=== PATIENT | female | born 1995 | race Caucasian/White ===

== ENCOUNTER 2018-01-27 11:58 | Observation (INO) ==
--- NOTE | 2018-01-27 12:04 | Emergency Department Note ---
Disposition Clinical Impression: Ureterolithiasis, Intractable pain Disposition: Admitted As Inpatient Condition: Fair Referrals: Bessie Lockhart MD [Primary Care Provider] - Forms: ED Satisfaction Letter, Work/School Release Time of Disposition: 15:14 Abdominal Pain HPI - General Chief Complaint: ED Abdominal Pain Stated Complaint: R Flank Pain Time Seen by Provider: 01/27/18 12:03 Source: patient Mode of arrival: ambulatory Limitations: no limitations Nursing Notes Reviewed: Yes Vital Signs Reviewed: Yes - History of Present Illness HPI Narrative: Patient is a 22-year-old female with past medical history of recently diagnosed right-sided ureterolithiasis. She states that she was seen in the ER approximately 4 days ago due to right flank pain and nausea and vomiting. She had a CT scan and she says that she was diagnosed with a right-sided kidney stone that was approximately 5 mm. She was sent home with Reina Vora and was told to follow-up with urology. She states that she did not make a call to urology because she was waiting to see if she was able to pass it on her own. She does have a history of 1 kidney stone prior to this and was able to pass it on her own. She states that the nausea, vomiting, pain worsened and she presented to [facility] yesterday. She had a CT scan performed there that she states showed a repeat 5 mm stone without large change in movement. She denies any other fevers, dysuria, gross hematuria, vaginal bleeding or discharge , concern for . She states that she was offered at admission yesterday for pain control but declined due to having children home. Pain Scale: 7 - Related Data Allergies Allergy/AdvReac Type Severity Reaction Status Date / Time No Known Allergies Allergy Verified 12/29/17 20:19 All systems ED: reviewed and negative except as stated. Constitutional: Denies: fever Cardiovascular: Denies: chest pain Respiratory: Denies: cough, dyspnea, wheezes Gastrointestinal: Reports: abdominal pain, nausea, vomiting. Denies: diarrhea, constipation, hematemesis, melena, hematochezia Genitourinary: Denies: urgency, dysuria Musculoskeletal: Denies: back pain, neck pain Integumentary: Denies: rash Neurological: Denies: headache, weakness, numbness, paresthesias Abdominal Pain PMH - Past Medical History Medical history: Reports: non-contributory Female Surgical History: Reports: no surgical history CAMP BOSS history: Reports: no CAMP BOSS history Psychiatric history: Reports: no psych history - Social History Smoking status: Never smoker Alcohol use: Reports: none Drug use: Reports: none Physical Exam - General Limitations: no limitations General appearance: alert, in no apparent distress - Head Head exam: atraumatic, normocephalic, normal inspection - Eye Eye exam: Present: normal appearance, PERRL, EOMI - ENT ENT exam: normal exam, normal oropharynx, mucous membranes moist - Neck Neck exam: Present: normal inspection, full ROM, trachea midline - Chest Chest inspection: Present: normal inspection, symmetric chest wall rise - Respiratory Respiratory exam: Present: normal lung sounds bilaterally - Cardiovascular Cardiovascular exam: Present: regular rate, normal rhythm, normal heart sounds - Abdominal Exam Abdominal exam: Present: soft, tenderness (mild RUQ tenderness, mild RLQ tenderness). Absent: distention, guarding, rebound, rigidity, Villalba's sign, Rovsing's sign, tenderness at McBurney's Point - Extremities Exam Extremities exam: Present: normal inspection, full ROM. Absent: tenderness, pedal edema - Back Exam Back exam: Present: CVA tenderness (R). Absent: CVA tenderness (L) - Neurological Exam Neurological exam: Present: alert, oriented X3 - Psychiatric Psychiatric exam: Present: normal affect, normal mood - Skin Skin exam: Present: warm, dry, intact, normal color Course Course Narrative: Vitals currently within normal limits. Physical exam shows right CVA, right flank, right lower quadrant tenderness. Patient has had 2 CTs within the past 4 days. We discussed obtaining KUB to assess for stone position to save radiation exposure. Patient was agreeable with this plan. We will also repeat urinalysis and urine . We will treat the patient with fentanyl and Zofran for pain and nausea control. We will obtain CT results from [facility] for confirmation. Patient may require admission for pain control. 14:57 upon review of the patient's charting and PACs radiology records, there is no evidence of any CT scan in our system. We contacted [facility], they faxed over information and there is also no CT scan performed at that facility either according to transfer center. KUB was performed but did not definitively show stone on exam. I discussed that we could obtain CT abdomen and pelvis for reassessment since there is no records of any CT scans for review. I did discuss extensively that this is been increased radiation risk to the patient. She still wanted CT scan performed, sitll has uncontrolled pain. CT abdomen and pelvis shows a 5 mm UVJ stone on the right. I called urology, spoke with Dr. Maria and discussed the case. He is agreeable with accepting the patient on his service for pain control and right-sided stent placement. KUB X-Ray 01/27/18 12:13 IMPRESSION: No evidence of bowel obstruction. D/ / Yoel Goddard MD / Yoel Goddard MD Interpreting Provider: Yoel Goddard MD Abdomen/Pelvis CT 01/27/18 13:32 IMPRESSION: 5 mm calculus at the right UVJ with associated moderate right hydronephrosis. D/ / 01/27/2018 14:31:55 Bart Naqvi MD / [facility] Interpreting Provider: Bart Naqvi MD Vital Signs Temperature 98.1 F 01/27/18 11:59 Pulse Rate 91 01/27/18 11:59 Respiratory Rate 16 01/27/18 11:59 Blood Pressure 119/74 01/27/18 11:59 O2 Sat by Pulse Oximetry 97 01/27/18 11:59 Temperature 98.1 F 01/27/18 12:14 Pulse Rate 79 01/27/18 14:35 Respiratory Rate 18 01/27/18 14:35 Blood Pressure 108/80 01/27/18 14:35 O2 Sat by Pulse Oximetry 97 01/27/18 12:14 Oxygen Delivery Oxygen Delivery Room Air Abdominal Pain - MDM Narrative Medical decision making narrative: Vitals currently within normal limits. Physical exam shows right CVA, right flank, right lower quadrant tenderness. Patient has had 2 CTs within the past 4 days. We discussed obtaining KUB to assess for stone position to save radiation exposure. Patient was agreeable with this plan. We will also repeat urinalysis and urine . We will treat the patient with fentanyl and Zofran for pain and nausea control. We will obtain CT results from [facility] for confirmation. Patient may require admission for pain control. 14:57 upon review of the patient's charting and PACs radiology records, there is no evidence of any CT scan in our system. We contacted [facility], they faxed over information and there is also no CT scan performed at that facility either according to transfer center. KUB was performed but did not definitively show stone on exam. I discussed that we could obtain CT abdomen and pelvis for reassessment since there is no records of any CT scans for review. I did discuss extensively that this is been increased radiation risk to the patient. She still wanted CT scan performed, myke has uncontrolled pain. CT abdomen and pelvis shows a 5 mm UVJ stone on the right. I called urology, spoke with Dr. Maria and discussed the case. He is agreeable with accepting the patient on his service for pain control and right-sided stent placement. - Medical Records Medical records reviewed: Yes I reviewed the patient's medical records. - Lab Data Lab results reviewed: Yes I reviewed the patient's lab results. Result diagrams: 01/27/18 12:30 01/27/18 12:30 Lab Results 01/27/18 01/27/18 01/27/18 Range/Units 12:05 12:05 12:30 WBC 6.5 (4.3-11.1) K/mcL RBC 4.01 (3.82-4.97) M/mcL Hgb 11.3 L (11.5-15.4) g/dL Hct 33.8 L (35.3-44.9) % MCV 84.3 (83.0-100.0) fL MCH 28.2 (28.0-33.3) pg MCHC 33.4 (31.6-35.5) g/dL RDW 12.6 (11.5-14.5) % Plt Count 250 (140-400) K/mcL MPV 10.4 (9.4-12.4) fL Immature Gran % 0.2 (0-4) % Seg Neutrophils % 69.8 % Lymphocytes % 19.2 % Monocytes % 9.2 % Eosinophils % 1.4 % Basophils % 0.2 % Neutrophils # 4.6 (1.6-8.9) K/mcL Lymphocytes # 1.3 (0.6-4.6) K/mcL Monocytes # 0.6 (0.0-1.3) K/mcL Eosinophils # 0.1 (0.0-0.6) K/mcL Basophils # 0.0 (0.0-0.2) K/mcL Sodium (136-145) mEq/L Potassium (3.5-5.1) mEq/L Chloride (98-107) mEq/L Carbon Dioxide (23-29) mEq/L BUN (6-20) mg/dL Creatinine (0.60-1.20) mg/dL Est GFR ( Amer) (> 60) Est GFR (Non-Af Amer) (> 60) BUN/Creatinine Ratio (6-26) Glucose (70-105) mg/dL Calculated Osmolality (280-300) Calcium (8.6-10.3) mg/dL Urine Color Yellow (Yellow) Urine Clarity Clear (Clear) Urine pH 6.5 (5.0-8.0) pH Units Ur Specific [place] 1.016 (1.010-1.025) Urine Protein Negative (Neg-Trace) mg/dL Urine Glucose (UA) Normal (Normal) mg/dL Urine Ketones Negative (Negative) mg/dL Urine Blood Moderate H (Negative) Urine Nitrite Negative (Negative) Urine Bilirubin Negative (Negative) Urine Urobilinogen Normal (Normal) mg/dL Ur Leukocyte Esterase Small H (Negative) Urine Microscopic RBC 5-15 H (0-3) per hpf Urine Microscopic WBC 3-5 H (0-3) per hpf Ur Squamous Epith Cells Many H (None-Few) per lpf Urine Bacteria None Seen (None-Few) per hpf Hyaline Casts None Seen (None-Few) per lpf Ur Culture Indicated? NO. A (NO) Urine Test Negative (Negative) 01/27/18 Range/Units 12:30 WBC (4.3-11.1) K/mcL RBC (3.82-4.97) M/mcL Hgb (11.5-15.4) g/dL Hct (35.3-44.9) % MCV (83.0-100.0) fL MCH (28.0-33.3) pg MCHC (31.6-35.5) g/dL RDW (11.5-14.5) % Plt Count (140-400) K/mcL MPV (9.4-12.4) fL Immature Gran % (0-4) % Seg Neutrophils % % Lymphocytes % % Monocytes % % Eosinophils % % Basophils % % Neutrophils # (1.6-8.9) K/mcL Lymphocytes # (0.6-4.6) K/mcL Monocytes # (0.0-1.3) K/mcL Eosinophils # (0.0-0.6) K/mcL Basophils # (0.0-0.2) K/mcL Sodium 137 (136-145) mEq/L Potassium 4.5 (3.5-5.1) mEq/L Chloride 106 (98-107) mEq/L Carbon Dioxide 28 (23-29) mEq/L BUN 13 (6-20) mg/dL Creatinine 0.78 (0.60-1.20) mg/dL Est GFR ( Amer) > 60 (> 60) Est GFR (Non-Af Amer) > 60 (> 60) BUN/Creatinine Ratio 17 (6-26) Glucose 108 H (70-105) mg/dL Calculated Osmolality 285 (280-300) Calcium 9.6 (8.6-10.3) mg/dL Urine Color (Yellow) Urine Clarity (Clear) Urine pH (5.0-8.0) pH Units Ur Specific [place] (1.010-1.025) Urine Protein (Neg-Trace) mg/dL Urine Glucose (UA) (Normal) mg/dL Urine Ketones (Negative) mg/dL Urine Blood (Negative) Urine Nitrite (Negative) Urine Bilirubin (Negative) Urine Urobilinogen (Normal) mg/dL Ur Leukocyte Esterase (Negative) Urine Microscopic RBC (0-3) per hpf Urine Microscopic WBC (0-3) per hpf Ur Squamous Epith Cells (None-Few) per lpf Urine Bacteria (None-Few) per hpf Hyaline Casts (None-Few) per lpf Ur Culture Indicated? (NO) Urine Test (Negative) - Radiology Data Radiology results reviewed: Yes I reviewed the patient's radiology results. KUB X-Ray 01/27/18 12:13 IMPRESSION: No evidence of bowel obstruction. D/ / Yoel Goddard MD / Yoel Goddard MD Interpreting Provider: Yoel Goddard MD Abdomen/Pelvis CT 01/27/18 13:32 IMPRESSION: 5 mm calculus at the right UVJ with associated moderate right hydronephrosis. D/ / 01/27/2018 14:31:55 Bart Naqvi MD / [facility] Interpreting Provider: MD Raysa Angel - Raysa Situation: Demographics, MOA Background: Presenting Complaint, Relevant PMH, Meds, & Allergies Assessment: Vital Signs, Course and respsone to treatment, Exam Concerns, Patient/Family Expectation, Pertinant Lab Results Recommendation: Barrier(s) to disposition, Recommendation based on pending studies, treatments, or consults Raysa Report Given to: Dr. Crow Tabares Repor Time: 15:14
[2018-01-27] MEDS ORDERED: Ondansetron 4 MG/2 ML VIAL IVP ONE (12:14)
[2018-01-27] MEDS ORDERED: *HR* FentaNYL (PF) 100 MCG/2 ML VIAL IVP ONE (12:14)
[2018-01-27 12:19] LABS: Bilirubin,Urine Negative (Negative); Blood,Urine Moderate (Negative); Clarity,Urine Clear (Clear); Color,Urine Yellow (Yellow); Glucose,Urine (UA) Normal (Normal); Ketones,Urine Negative (Negative); Leukocyte Esterase,Urine Small (Negative); Nitrite,Urine Negative (Negative); PH,Urine 6.5 pH Units (5.0-8.0); Protein,Urine Negative (Neg-Trace); Specific Gravity,Urine 1.016 (1.010-1.025); Urobilinogen,Urine Normal (Normal)
[2018-01-27 12:23] LABS: Bacteria,Urine None Seen per hpf (None-Few); Hyaline Casts,Urine None Seen per lpf (None-Few); Squamous Epithelial Cell,Urine Many per lpf (None-Few)
[2018-01-27 12:45] LABS: Basophils % 0.2 %; Eosinophils # 0.1 K/mcL (0.0-0.6); Eosinophils % 1.4 %; Hematocrit 33.8 % (35.3-44.9); Hemoglobin 11.3 g/dL (11.5-15.4); Immature Granulocytes % 0.2 % (0-4); Lymphocytes # 1.3 K/mcL (0.6-4.6); Lymphocytes % 19.2 %; Mean Corpuscular HGB Conc 33.4 g/dL (31.6-35.5); Mean Corpuscular Hemoglobin 28.2 pg (28.0-33.3); Mean Corpuscular Volume 84.3 fL (83.0-100.0); Mean Platelet Volume 10.4 fL (9.4-12.4); Monocytes # 0.6 K/mcL (0.0-1.3); Monocytes % 9.2 %; Neutrophils # 4.6 K/mcL (1.6-8.9); Platelet Count 250 K/mcL (140-400); Red Blood Count 4.01 M/mcL (3.82-4.97); Red Cell Distribution Width 12.6 % (11.5-14.5); Segmented Neutrophils % 69.8 %
--- NOTE | 2018-01-27 13:00 | Emergency Department Note ---
Disposition Clinical Impression: Ureterolithiasis, Intractable pain Disposition: Admitted As Inpatient Condition: Fair Referrals: Bessie Lockhart MD [Primary Care Provider] - Forms: ED Satisfaction Letter, Work/School Release Abdominal Pain HPI - General Chief Complaint: ED Abdominal Pain Stated Complaint: R Flank Pain Time Seen by Provider: 01/27/18 12:03 Source: patient Mode of arrival: ambulatory Nursing Notes Reviewed: Yes Vital Signs Reviewed: Yes - History of Present Illness Pain Scale: 0 - Related Data Previous Rx's Medication Instructions Recorded Azithromycin [Azithromycin 6-Tab 250 mg PO PER PKG DI #6 tab 07/08/17 Pack] Ibuprofen [Motrin] 600 mg PO Q6HR PRN #20 tab 07/08/17 Nayan/Poly/HC *EAR* SOLN 4 drop RIGHT EAR QID #1 solution 07/08/17 [Cortisporin *EAR* SOLN] Ibuprofen [Motrin] 800 mg PO Q8HR #30 tablet 11/20/17 HYDROcodone/Acet 5/325 mg [[place] 1 tab PO Q6H PRN 2 Days #8 tab 12/29/17 5-325 mg] Ibuprofen [Motrin] 800 mg PO Q8HR PRN #14 tablet 12/29/17 Allergies Allergy/AdvReac Type Severity Reaction Status Date / Time No Known Allergies Allergy Verified 12/29/17 20:19 Constitutional: Denies: fever Cardiovascular: Denies: chest pain Respiratory: Denies: cough, dyspnea, wheezes Gastrointestinal: Reports: abdominal pain, nausea, vomiting. Denies: diarrhea, constipation, hematemesis, melena, hematochezia Genitourinary: Denies: urgency, dysuria Musculoskeletal: Denies: back pain, neck pain Integumentary: Denies: rash Neurological: Denies: headache, weakness, numbness, paresthesias Abdominal Pain PMH - Past Medical History Medical history: Reports: non-contributory Female Surgical History: Reports: no surgical history LAW TUTOR history: Reports: no LAW TUTOR history Psychiatric history: Reports: no psych history - Social History Smoking status: Never smoker Alcohol use: Reports: none Drug use: Reports: none Physical Exam - General Limitations: no limitations General appearance: alert, in no apparent distress Course Vital Signs Temperature 98.1 F 01/27/18 11:59 Pulse Rate 91 01/27/18 11:59 Respiratory Rate 16 01/27/18 11:59 Blood Pressure 119/74 01/27/18 11:59 O2 Sat by Pulse Oximetry 97 01/27/18 11:59 Temperature 98.1 F 01/27/18 12:14 Pulse Rate 71 01/27/18 12:50 Respiratory Rate 16 01/27/18 12:14 Blood Pressure 110/57 01/27/18 12:50 O2 Sat by Pulse Oximetry 97 01/27/18 12:14 Oxygen Delivery Oxygen Delivery Room Air Abdominal Pain - Lab Data Result diagrams: 01/27/18 12:30 Lab Results 01/27/18 01/27/18 Range/Units 12:05 12:30 WBC 6.5 (4.3-11.1) K/mcL RBC 4.01 (3.82-4.97) M/mcL Hgb 11.3 L (11.5-15.4) g/dL Hct 33.8 L (35.3-44.9) % MCV 84.3 (83.0-100.0) fL MCH 28.2 (28.0-33.3) pg MCHC 33.4 (31.6-35.5) g/dL RDW 12.6 (11.5-14.5) % Plt Count 250 (140-400) K/mcL MPV 10.4 (9.4-12.4) fL Immature Gran % 0.2 (0-4) % Seg Neutrophils % 69.8 % Lymphocytes % 19.2 % Monocytes % 9.2 % Eosinophils % 1.4 % Basophils % 0.2 % Neutrophils # 4.6 (1.6-8.9) K/mcL Lymphocytes # 1.3 (0.6-4.6) K/mcL Monocytes # 0.6 (0.0-1.3) K/mcL Eosinophils # 0.1 (0.0-0.6) K/mcL Basophils # 0.0 (0.0-0.2) K/mcL Urine Color Yellow (Yellow) Urine Clarity Clear (Clear) Urine pH 6.5 (5.0-8.0) pH Units Ur Specific [place] 1.016 (1.010-1.025) Urine Protein Negative (Neg-Trace) mg/dL Urine Glucose (UA) Normal (Normal) mg/dL Urine Ketones Negative (Negative) mg/dL Urine Blood Moderate H (Negative) Urine Nitrite Negative (Negative) Urine Bilirubin Negative (Negative) Urine Urobilinogen Normal (Normal) mg/dL Ur Leukocyte Esterase Small H (Negative) Urine Microscopic RBC 5-15 H (0-3) per hpf Urine Microscopic WBC 3-5 H (0-3) per hpf Ur Squamous Epith Cells Many H (None-Few) per lpf Urine Bacteria None Seen (None-Few) per hpf Hyaline Casts None Seen (None-Few) per lpf Ur Culture Indicated? NO. A (NO) Attestation Statement - Attestation Attestation: I, Ja Garcia, examined this patient and my medical decision-making was reviewed with the SPRAY APPLICATOR/PA/Advanced Practice Nurse/Resident Physician. I agree with the documented findings, disposition and treatment plan as described except to the extent set forth below. 22-year-old female presents emergency Department with concerns of right flank pain. Patient has a diagnosis 5 mm stone. She was diagnosed with the ureterolithiasis at [facility] and was discharged home with pain medication. Patient has taken multiple pain medications at home without improvement of her pain. She denies fever, chills, chest pain, diarrhea. She does report minimal vaginal discharge however she states that she has had this in the past. I offered a pelvic exam for further evaluation of possible STI. Patient declined and wishes to follow-up with her LAW TUTOR doctor. We obtained records from [facility] which shows the patient is not and she did not have a urinary tract infection. Creatinine was mildly elevated at 1.08.
[2018-01-27 13:08] LABS: BUN/Creatinine Ratio 17 (6-26); Blood Urea Nitrogen 13 mg/dL (6-20); Calcium 9.6 mg/dL (8.6-10.3); Carbon Dioxide 28 mEq/L (23-29); Chloride 106 mEq/L (98-107); Glucose 108 mg/dL (70-105); Osmolality,Calculated 285 (280-300); Potassium 4.5 mEq/L (3.5-5.1); Sodium 137 mEq/L (136-145); eGFR For Non-African Americans > 60 (> 60)
[2018-01-27] MEDS ORDERED: Naloxone 0.4 MG/ML INJ IVP PRN (15:31)
[2018-01-27] MEDS ORDERED: *HR* HYDROcodone/Acet 5/325 mg TABLET PO PRN (15:31)
[2018-01-27] MEDS ORDERED: Ketorolac 15 MG/ML VIAL IVP PRN (15:31)
[2018-01-27] MEDS ORDERED: Ondansetron 4 MG/2 ML VIAL IVP PRN (15:31)
[2018-01-27] MEDS ORDERED: *HR* Promethazine 25 MG/ML VIAL IVP PRN (15:31)
--- NOTE | 2018-01-27 15:44 | Urology History & Physical ---
Date of Encounter: 01/27/18 Time of Encounter: 15:42 Assessment and Plan (1) Ureterolithiasis Current Visit: Yes Status: Acute will plan ureteroscopic stone extraction with holmium laser litho in the AM. procedure discussed including risks - stricture, UTI, injury to urinary tract, stent complications/discomfort. she will require the stent for at least 3 days. (2) Intractable pain Current Visit: Yes Status: Acute oxycodone and toradol for pain controll monitor for stone passage overnight. History of Present Illness Chief complaint: flank pain HPI: Ms. Jones is a 22 year old female with history of kidney stones. ct scan shwos a 5 mm UVJ stone with hydronephrosis. 2 ER visits. intractable pain. no fever. admitted for surgical intervention and pain management. Past Med Surg Social Fam HX - Past Medical History Medical history: non-contributory Psychiatric history: no psych history - Past Surgical History Surgical History: no surgical history - Social History Smoking Status: Never smoker Smokeless Tobacco Status: No Alcohol use: none Drug use: none Medications and Allergies HYDROcodone/Acet 5/325 mg [[place] 5-325 mg] 1 tab PO Q6H PRN 01/27/18 [History] Ketorolac [Toradol] 10 mg PO TID PRN 01/27/18 [History] Tamsulosin [Flomax] 0.4 mg PO DAILY 01/27/18 [History] 3 Allergy/AdvReac Type Severity Reaction Status Date / Time No Known Allergies Allergy Verified 12/29/17 20:19 Review of Systems - Constitutional chills, no fever(s) - EENT Nose, mouth and throat: no dizziness - Cardiovascular no chest pain - Respiratory no cough - Gastrointestinal abdominal pain, nausea - Genitourinary Genitourinary: flank pain - Musculoskeletal back pain - Integumentary no erythema - Neurological no confusion - Psychiatric no anxiety - Hematologic/Lymphatic no easy bleeding - Allergic/Immunologic no throat swelling Exam Initial Vital Signs Temp Pulse Resp BP Pulse Ox 98.1 F 91 16 119/74 97 01/27/18 11:59 01/27/18 11:59 01/27/18 11:59 01/27/18 11:59 01/27/18 11:59 - General physical appearance Present: no distress, moderate pain - Eyes Present: PERRL - ENT Present: normal nares - Neck Present: no masses - Respiratory Present: normal respiratory effort - Abdomen Abdomen: Present: soft - Integumentary Present: no rash - Neurologic Present: normal coordination. Absent: disoriented, confused - Additional Findings +right CVA tenderness Urology Results - Labs 01/27/18 12:30 01/27/18 12:30 Abnormal lab results Hgb 11.3 g/dL (11.5-15.4) L 01/27/18 12:30 Hct 33.8 % (35.3-44.9) L 01/27/18 12:30 Glucose 108 mg/dL (70-105) H 01/27/18 12:30 Urine Blood Moderate (Negative) H 01/27/18 12:05 Ur Leukocyte Esterase Small (Negative) H 01/27/18 12:05 Urine Microscopic RBC 5-15 per hpf (0-3) H 01/27/18 12:05 Urine Microscopic WBC 3-5 per hpf (0-3) H 01/27/18 12:05 Ur Squamous Epith Cells Many per lpf (None-Few) H 01/27/18 12:05 Ur Culture Indicated? NO. (NO) A 01/27/18 12:05 All other labs normal.
[2018-01-27] MEDS: OXYCODONE Oral CONC 10 MG/0.5 ML ORAL.SYG SL PRN ×2 (16:50→18:23)
[2018-01-27] MEDS: 0.9 % Sodium Chloride 1,000 ML IVC SCH (16:50)
[2018-01-28] MEDS: OXYCODONE Oral CONC 10 MG/0.5 ML ORAL.SYG SL PRN ×2 (00:18→06:20)
[2018-01-28] MEDS: 0.9 % Sodium Chloride 1,000 ML IVC SCH (03:28)
[2018-01-28] MEDS ORDERED: cefTRIAXone 1,000 MG in Water for inj. (sterile) 20 ML 10 ML IVP SCH (06:00)
--- NOTE | 2018-01-28 07:17 | Anesthesia Evaluation PreOp ---
Date of Encounter: 01/28/18 Time of Encounter: 07:17 - Past History Planned Operation: R-uteroscopic stone extraction Cardiac History: Denies any Significant Hx Pulmonary History: Denies Any Significant HX SHAREPOINT ADMIN History: Denies Any Significant HX Other Medical History: Denies Any Significant HX Anesthesia History: No Prior Anesthetic Complications, Past Anesthesia Alcohol Use: none Drug use: none Medications and Allergies HYDROcodone/Acet 5/325 mg [[place] 5-325 mg] 1 tab PO Q6H PRN 01/27/18 [History] Ketorolac [Toradol] 10 mg PO TID PRN 01/27/18 [History] Tamsulosin [Flomax] 0.4 mg PO DAILY 01/27/18 [History] 3 Allergy/AdvReac Type Severity Reaction Status Date / Time No Known Allergies Allergy Verified 12/29/17 20:19 - Meds/Allergy Pre-op Review Medications Reviewed: Yes Allergies Reviewed: Yes Beta Blockers on Current Med List: No Anesthesia Results - Labs 01/27/18 12:30 01/27/18 12:30 Laboratory Results Laboratory Tests 01/27/18 12:05 Urine Test Negative Impressions KUB X-Ray 01/27/18 12:13 IMPRESSION: No evidence of bowel obstruction. D/ / Yoel Goddard MD / Yoel Goddard MD Interpreting Provider: Yoel Goddard MD Abdomen/Pelvis CT 01/27/18 13:32 IMPRESSION: 5 mm calculus at the right UVJ with associated moderate right hydronephrosis. D/ / 01/27/2018 14:31:55 Bart Naqvi MD / [email or web address] Interpreting Provider: Bart Naqvi MD Anesthesia Exam Vital Signs Temp Pulse Resp BP Pulse Ox 01/28/18 04:00 98.1 F 68 14 99 01/27/18 20:49 98 01/27/18 16:06 98.0 F 72 14 106/70 98 01/27/18 15:29 98.9 F 18 104/82 01/27/18 14:35 79 18 108/80 01/27/18 13:43 67 16 108/59 01/27/18 12:50 71 110/57 01/27/18 12:14 98.1 F 91 16 119/74 97 01/27/18 11:59 98.1 F 91 16 119/74 97 Intake and Output 01/27/18 01/27/18 01/28/18 15:59 23:59 07:59 Intake Total 240 / 240 1300 / 1300 Output Total 0 / 0 900 / 900 Balance 240 / 240 400 / 400 Intake: IV Fluids 1000 / 1000 0.9 % Sodium Chloride 1,000 ML 1000 / 1000 @ 100 mls/hr IVC .Q10H MARY Rx#: [id number] Oral 240 / 240 300 / 300 Output: Urine 0 / 0 900 / 900 Other: Meal Dinner Percent of Meal Consumed 50% Stool Characteristics Normal for Patient Stool Color Brown # Bowel Movements 0 Weight 77.111 kg 85.956 kg Height: 5'3" Weight: 189# NPO (# of Hours): MNoc Pain Scale Used: Numeric (1 - 10) - HEENT Pupil (Motor): Pupils equal, EOMI Mallampati: II Teeth: Normal Oral Opening: Greater than 3 - SHAREPOINT ADMIN LOC: Oriented SHAREPOINT ADMIN Motor: Normal RUE, Normal LUE, Normal RLE, Normal LLE, Normal Face SHAREPOINT ADMIN Sensory: Normal: RUE, LUE, RLE, LLE, Face - Cardiac Rhythm: Regular Murmur: None - Pulmonary Breath Sounds: bilateral Clear Respiratory Effort: Symmetrical Anesthesia Assess/Plan ASA Score: 2 Modified Shelley Scale for Level of Consciousness: Cooperative, oriented, and tranquil Anesthetic Plan: General Monitoring Plan: Standard Monitors Recovery Plan: PACU Anes Supervising Prov Stmt: Pt seen/evaluated, R&B discussed questions answered and consent obtained. Samuel Pope MD
[2018-01-28] MEDS ORDERED: Famotidine 20 MG/2 ML VIAL ONE (07:28)
[2018-01-28] MEDS ORDERED: Acetaminophen IV 1,000 MG/100 ML INFUS..BTL ONE (07:28)
[2018-01-28] MEDS ORDERED: Metoclopramide 10 MG/2 ML VIAL ONE (07:28)
[2018-01-28] MEDS ORDERED: *HR* FentaNYL (PF) 100 MCG/2 ML VIAL ONE (07:38)
[2018-01-28] MEDS ORDERED: *HR* Midazolam HCl 2 MG/2 ML VIAL ONE (07:38)
[2018-01-28] MEDS ORDERED: *HR* Propofol 200 MG/20 ML VIAL IVP ONE (07:38)
[2018-01-28] MEDS ORDERED: Ondansetron 4 MG/2 ML VIAL ONE (07:38)
[2018-01-28] MEDS ORDERED: Dexamethasone 4 MG/ML VIAL ONE (07:38)
[2018-01-28] MEDS ORDERED: Lidocaine -MPF 2% 2 ML VIAL ONE (07:38)
[2018-01-28] MEDS ORDERED: Ketorolac 30 MG/ML VIAL ONE (08:14)
[2018-01-28] MEDS ORDERED: *HR* Promethazine 25 MG/ML VIAL IVP PRN ×3 (08:18→08:55)
[2018-01-28] MEDS ORDERED: *HR* OxyCODONE/APAP 5/325 TABLET PO PRN ×2 (08:18→08:55)
[2018-01-28] MEDS ORDERED: Naloxone 0.4 MG/ML INJ IVP PRN (08:55)
[2018-01-28] MEDS ORDERED: *HR* HYDROcodone/Acet 5/325 mg TABLET PO PRN (08:55)
[2018-01-28] MEDS ORDERED: Ondansetron 4 MG/2 ML VIAL IVP PRN (08:55)
[2018-01-28] MEDS ORDERED: Ketorolac 15 MG/ML VIAL IVP PRN (08:55)
[2018-01-28] MEDS ORDERED: OXYCODONE Oral CONC 10 MG/0.5 ML ORAL.SYG SL PRN ×2 (08:55)
--- NOTE | 2018-01-28 08:57 | Operative Note ---
Date of procedure: 01/28/18 Pre-op diagnosis: right 5 mm distal ureteral stone Post-op diagnosis: same Procedure: right ureteroscopic stone extraction right JJ placement Anesthesia: GETA Surgeon: Kalin Maria Was there an child life assistant present: No Estimated blood loss (cc): 0 Specimen: stone Condition: stable Disposition: PACU Procedure in Detail: . PROCEDURE IN DETAIL: Patient was taken back to the operating room, positioned supine on the operating table. Anesthesia was applied without complication. They were moved into dorsal lithotomy. Careful attention was maintained to cushion all pressure points for patient's safety. They were prepped and draped in sterile fashion. Time-out was performed with the proper patient and procedure. A 21-Greek rigid cystoscope was inserted into the bladder without difficulty. Systematic examination of bladder revealed no abnormalities. The ureteral orifice was cannulated using a 5-Greek ureteral Catheter and a zip wire was placed . A semi-rigid ureteroscope was carefully inserted into the bladder and guided into the ureteral oriface. At that point, the stone was encountered and I felt that it could be basketed out of the ureter without laser litho. It was removed easily with a 1.9 tipless basket. All stone in the ureter was removed. A 4.8 x 26 ureteral stent was placed over the zip wire under fluoroscopy without complication. The bladder was drained and the stone was sent. The string was left attached to the stent and secured to the patient for easy removal in approximately 72 hours
--- NOTE | 2018-01-28 09:00 | Discharge Summary ---
Orders not resulted at time of discharge: Pending orders 01/28/18 XR KUB [XR] Routine XR fluoroscopy <1 hr [XR] Routine 01/28/18 08:36 Surgical Pathology [PTH] Routine Date of Encounter: 01/28/18 Time of Encounter: 09:00 - Discharge Diagnosis (1) Ureterolithiasis Priority: Primary Status: Resolved (2) Intractable pain Priority: Secondary Status: Resolved - Hospital Course Hospital course: Ms. Jones is a 22 year old female s/p successful ureteroscopic stone extraction for a 5 mm distal right ureteral stone. Plan for discharge today when verifying symptoms are controlled. - Time Spent with Patient Total time spent providing and/or coordinating discharge services: - Discharge Medications Prescriptions: HYDROcodone/Acet 5/325 mg [[place] 5-325 mg] 1 tab PO Q6H PRN 3 Days #10 tablet PRN Reason: Pain Home Medications: Ketorolac [Toradol] 10 mg PO TID PRN 01/27/18 [History] HYDROcodone/Acet 5/325 mg [[place]ledge 5-325 mg] 1 tab PO Q6H PRN 3 Days #10 tablet [Rx] Allergies/Adverse Reactions: 3 Allergy/AdvReac Type Severity Reaction Status Date / Time No Known Allergies Allergy Verified 12/29/17 20:19 Date of admission: 01/27/18 15:10 Primary care physician: Bessie Lockhart Discharging clinician: Kalin Maria Anticipated date of discharge: 01/28/18 Exam Initial Vital Signs Temp Pulse Resp BP Pulse Ox 98.1 F 91 16 119/74 97 01/27/18 11:59 01/27/18 11:59 01/27/18 11:59 01/27/18 11:59 01/27/18 11:59 - General physical appearance Present: no distress - Patient Status Disposition: Home, Self-Care Condition: Good Functional capacity at discharge: independent ambulation Overall status at discharge: patient is progressing back to baseline - Discharge Instructions Follow Up With: Bessie Lokchart MD [Primary Care Provider] - Kalin Maria MD [Partnered Physician] - (see patient instructions. ) Additional Instructions: Expect stent discomfort including urgency, frequency, burning on urination, light blood in the urine, flank pain on urination. Okay to remove stent at home on Monday morning. Expect mild increase in pain for the first 12-24 hours after the stent is removed. This is normal. If unable to remove the stent at home, please come to the urology office for removal If stent is removed at home, please follow up with urology in 2-4 weeks. Call if any symptoms or severe or fever over 101 degrees Increase water intake to at least 64 ounces per day Okay to take [id number] AZO for burning on urination. - Diet and Activity Activity: other Diet: advance to your usual diet - VTE Documentation of Mechanical Device: Intermittent pneumatic compression device
--- NOTE | 2018-01-28 09:20 | Anesthesia Evaluation Post Op ---
Date of Encounter: 01/28/18 Time of Encounter: 09:15 - Vital Signs Vital Signs: Vital Signs - Last 8 Hours Temp Pulse Resp BP Pulse Ox 01/28/18 09:05 98.7 F 72 18 115/65 99 01/28/18 08:55 64 18 112/65 98 01/28/18 08:45 61 14 114/61 97 01/28/18 08:35 98.4 F 67 12 118/74 100 01/28/18 04:00 98.1 F 68 14 99 Intake and Output 01/27/18 01/28/18 01/28/18 23:59 07:59 15:59 Intake Total 240 / 240 1310 / 1310 Output Total 0 / 0 900 / 900 0 / 0 Balance 240 / 240 410 / 410 0 / 0 Intake: IV Fluids 1010 / 1010 0.9 % Sodium Chloride 1,000 ML 1000 / 1000 @ 100 mls/hr IVC .Q10H MARY Rx#: [id number] Rocephin 1,000 MG In Water for 10 / 10 inj. (sterile) 10 ML @ 600 mls/ hr IVP Q24H MARY Rx#:[id number] Oral 240 / 240 300 / 300 Output: Urine 0 / 0 900 / 900 Estimated Blood Loss 0 / 0 Other: Meal Dinner Percent of Meal Consumed 50% # Bowel Movements 0 Weight 85.956 kg - Lungs Lungs: Clear Ascult./Percussion - Airway Airway: Non-obstructed - Cardiovascular Regular Rate, Baseline Rhythm - Mental Status Mental Status: Alert & Oriented, Answers Appropriately - Pain Pain Scale: 0 Pain Scale used: Numeric (1 - 10) - Nausea Vomiting Nausea Vomiting: Not Present - Hydration Hydration: Ice chips - Discharge PostOp Status: Transfer Patient to floor
[2018-01-28 13:53] VITALS: BP 91/55
[2018-01-29] MEDS ORDERED: cefTRIAXone 1,000 MG in Water for inj. (sterile) 20 ML 10 ML IVP SCH (06:00)
== END 2018-01-28 14:24 | disposition home or self-care (01) ==
LOC: EMEROO 11:58 → 3ANU 11:58
PROVIDERS: ADMIT Urology; ATTEND Urology